=== PATIENT | female | born 1955 | race Caucasian/White ===

== ENCOUNTER 2016-10-16 15:37 | Observation (INO) | payer OTHER ==
[2016-10-16] MEDS ORDERED: Aspirin Low Dose CHEW TAB* 81 MG PO ONE (16:10)
--- NOTE | 2016-10-16 16:40 | RAD ---
INDICATION: Chest discomfort and arrhythmia COMPARISON: Similar chest x-ray dated December 24, 2015 TECHNIQUE: Single AP portable view of the chest was obtained. FINDINGS: Image quality is compromised due to the relative inferiority of a portable chest x-ray. The heart and mediastinum exhibit normal size and contour. The lungs are grossly clear. There is no evidence of a large pleural effusion. Visualized bones are normal for the patient's age. IMPRESSION: No radiographic evidence for acute cardiopulmonary abnormality on this portable chest x-ray.
[2016-10-16 16:47] LABS: Hematocrit 40 % (35-47); Hemoglobin 13.3 g/dl (12.0-16.0); Mean Corpuscular HGB Conc 34 g/dl (31-36); Mean Corpuscular Hemoglobin 29 pg (27-31); Mean Corpuscular Volume 86 fL (80-97); Mean Platelet Volume 9 um3 (7.4-10.4); Red Cell Distribution Width 14 % (10.5-15); White Blood Count 6.2 10^3/ul (3.5-10.8)
[2016-10-16 17:05] LABS: Albumin 4.2 g/dL (3.2-5.2); BUN/Creatinine Ratio 13.3 (8-20); Calcium 8.7 mg/dL (8.6-10.3); EGFR African American 89.9 (>60); EGFR Non-African American 69.9 (>60); Globulin 2.3 g/dL (2-4); Potassium 3.5 mmol/L (3.5-5.0); Total Bilirubin 0.5 mg/dL (0.2-1.0); Total Protein 6.5 g/dL (6.4-8.9)
[2016-10-16 19:36] LABS: TSH (Thyroid Stimulating Horm) 2.28 mcIU/mL (0.34-5.60)
[2016-10-16 19:43] LABS: Free T4 0.96 ng/dL (0.61-1.12)
[2016-10-16] MEDS ORDERED: MELOXICAM 10 MG PO PRN (23:38)
--- NOTE | 2016-10-17 03:26 | HP ---
HISTORY AND PHYSICAL: DATE OF ADMISSION: 10/16/16 PRIMARY CARE PHYSICIAN: [facility], HASMUKH Parry CHIEF COMPLAINT: Shortness of breath. HISTORY OF PRESENT ILLNESS: The patient is a 61-year-old woman who says [facility] and when she was evaluated by the provider there, they listened to her heart rate and pulse and became concerned and sent her over to the ER because of concerns about an irregular pulse. She has been short of breath lately for about the last month. It seems to happen when she goes to the bathroom in the middle of the night or goes to the mail box. She denies any increased shortness of breath when she is laying flat, but she has noticed about a 40-pound weight gain over the last year. She has not noticed any increased swelling in her legs. She did have a slightly elevated BNP in the ER. However, her regular heart beat was no more than PVCs on the EKG and she was in sinus rhythm. PAST MEDICAL HISTORY: Significant for hypothyroidism, diabetes mellitus, hyperlipidemia, arthritis. PAST SURGICAL HISTORY: Significant for total right knee, total right hip, total left knee, two C-sections, cholecystectomy, uvuloplasty, back surgery, thyroidectomy. CURRENT MEDICATIONS: 1. Synthroid 100 mcg a day. 2. Meloxicam 10 mg a day as needed. 3. It should be noted she was on Lopid and metformin, but she stopped those about a month ago because thought they were causing her diarrhea. FAMILY HISTORY: Significant for mother who at age 60 after a broken hip. Father in his 50s of cancer of unknown origin. SOCIAL HISTORY: No tobacco, no alcohol, or recreational drug use. 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 She has 3 children. She is not . Her friend, Ivanna Justice, is her healthcare proxy. REVIEW OF SYSTEMS: A 14-point review of systems was completed with the patient. All pertinent positives and negatives are in the history of present illness, otherwise it is negative. PHYSICAL EXAMINATION GENERAL: Pleasant woman, lying in bed, in no acute distress. VITAL SIGNS: Blood pressure 145/66, pulse oxygenation 96% on room air, respiratory rate 16 breaths per minute, heart rate 65 beats per minute, and temperature 99.6 degrees. HEENT: Normocephalic, atraumatic. Pupils equal, round, reactive to light. Moist mucous membranes. NECK: Supple. No JVD, bruits, palpable thyroid, or lymphadenopathy. LUNGS: Chest is clear to auscultation and percussion bilaterally. CARDIOVASCULAR: S1 and S2 appreciated. Regular rate and rhythm. ABDOMEN: Positive bowel sounds in all 4 quadrants. Soft, nontender, and nondistended. She is obese. EXTREMITIES: No cyanosis or clubbing, but she does have some bilateral pitting edema. NEUROLOGIC: Alert and oriented x3. Moves all extremities. SKIN: No rashes or abnormalities. LABORATORY DATA: EKG shows normal sinus rhythm at a rate of 66 beats per minute. Normal axis. No acute ST or T-wave changes. She has PVCs. Her chest x-ray was interpreted by Radiology as no radiographic evidence for acute cardiopulmonary abnormality on this portable chest x-ray. ASSESSMENT AND PLAN: 1. Shortness of breath. I think the patient is likely to be fine and it may be secondary to her deconditioning from her weight gain. However, she does have some edema and a slightly elevated BNP. We will cycle her troponins overnight and check a transthoracic echocardiogram in the morning, but I think she should be able to be discharged over night and I will admit her to the CDU unit. 2. Hypothyroidism. Continue Synthroid. 3. Diabetes mellitus. The patient should go back on her medications as an outpatient since she has not improved since discontinuing her metformin. 4. DVT prophylaxis, heparin subcu. 5. FEN. Consistent carb diet. 6. The patient is a full code. TIME SPENT: Over 75 minutes were spent on this H and P, more than 40 minutes of which was spent in direct vhhb-at-wdip contact with the patient in evaluation , physical examination, counseling, and coordination of care. CC: [facility], HASMUKH Parry* [id number]/CPS #: [id number] MTDD
[2016-10-17] MEDS ORDERED: Levothyroxine TAB* 100 MCG TAB PO SCH (06:00)
[2016-10-17] MEDS ORDERED: Heparin VIAL(*) 5000 UNITS/ML VIAL (FIVE THOUSAND) SUBCUT SCH (06:00)
[2016-10-17 11:37] VITALS: BP 112/89
--- NOTE | 2016-10-17 12:46 | ECHO ---
Patient: DANIAL [facility] Rec#: [id number] : 1955 Date: 10/17/2016 Age: 61y Height: 180.34 cm / 71.0 in Weight: 127.01 kg / 279.9 lbs Sex: F BSA: 2.43 Room#: 451 Admit Date#: 10/16/2016 Type: Inpatient Referring: Thompson Charlton MD Reading: Alice Camacho MD Supervisor Final: Rachna Weiss RD,RDMS Supervisor Final: Marisol Valencia Transthoracic Echocardiogram Indication: Dyspnea BP: 127/74 HR: 74 Rhythm: NSR with PVCs Findings History: DM, HLD, edema. Technical Comments: The study quality is fair. The study is technically limited due to patient body habitus. Completed at 1200. Left Ventricle: The left ventricular chamber size is normal. Global left ventricular wall motion and contractility are within normal limits. There is normal left ventricular systolic function. The estimated ejection fraction is 60-65%. There is no consistent Doppler evidence of clinically significant diastolic dysfunction. Left Atrium: The left atrial chamber size is normal. Right Ventricle: Moderator Band present. The right ventricular cavity size is normal. The right ventricular global systolic function is low normal.based on subcostal views, relative hypokinesis at the apex, base moves well. Right Atrium: The right atrium is moderately dilated. Aortic Valve: The aortic valve is trileaflet. There is no evidence of aortic valve thickening. There is no evidence of aortic regurgitation. There is no evidence of aortic stenosis. Mitral Valve: There is trace to mild mitral regurgitation. There is no evidence of mitral stenosis. Tricuspid Valve: The tricuspid valve leaflets are normal. There is trace to mild tricuspid regurgitation. No pulmonary hypertension is noted. There is no tricuspid stenosis. Pulmonic Valve: The pulmonic valve appears normal. There is mild pulmonic regurgitation. There is no pulmonic stenosis. Pericardium: There is no significant pericardial effusion. A pericardial fat pad is visualized. Aorta: There is mild dilatation of the ascending aorta. There is no dilatation of the aortic arch. There is no dilation of the aortic root. Pulmonary Artery: The main pulmonary artery is not well visualized. Venous: The inferior vena cava appears normal in size. There is a greater than 50% respiratory change in the inferior vena cava dimension. Conclusions The left ventricular chamber size is normal. Global left ventricular wall motion and contractility are within normal limits. The estimated ejection fraction is 60-65%. The right ventricular global systolic function is low normal. The right atrium is moderately dilated. There is trace to mild mitral regurgitation. There is trace to mild tricuspid regurgitation. No pulmonary hypertension is noted. There is mild dilatation of the ascending aorta: 3.7 cm. A pericardial fat pad is visualized. The patient was in sinus rhythm with frequent PVC's throughout the study. No prior studies to compare. Measurements Name Value Normal Range RVIDd (AP) 2D 2.7 cm (0.9 - 2.6) RVDdMajor (2D) 4.1 cm (2.2 - 4.4) RAd ISD 4CH 5.7 cm (3.4 - 4.9) RA (A4C)W 5.4 cm (2.9 - 4.6) IVSd (2D) 1 cm (0.6 - 1) LVPWd (2D) 0.9 cm (0.6 - 1) LVIDd (2D) 5.1 cm (3.6 - 5.4) LVIDs (2D) 3.4 cm - LV FS (2D) 33 % (25 - 45) Aortic Annulus 2.2 cm (1.4 - 2.6) Ao root diameter (2D) 3.3 cm (2.1 - 3.5) Ascending Ao 3.7 cm (2.1 - 3.4) Aortic arch 2.6 cm (1.8 - 3.4) LA dimension (AP) 2D 3.5 cm (2.3 - 3.8) LAd ISD 4CH 5.3 cm (2.9 - 5.3) LA ISD 4CH W 4.1 cm (2.5 - 4.5) Name Value Normal Range LA ESV SP 4CH (A/L) 48 ml - LA ESV SP 2CH (A/L) 82 ml - LA ESV BP (A/L) 63 ml - LA ESV BP (A/L) index 25.82 ml/m2 - LA ESV SP 4CH (MOD) 43 ml - LA ESV SP 2CH (MOD) 73 ml - Name Value Normal Range MV E-wave Vmax 0.9 m/sec - MV deceleration time 178 msec - MV A-wave Vmax 0.6 m/sec - MV E:A ratio 1.5 ratio - LV septal e' Vmax 0.1 m/sec - LV lateral e' Vmax 0.11 m/sec - LV E:e' septal ratio 9 ratio - LV E:e' lateral ratio 8.18 ratio - Name Value Normal Range AV Vmax 1.3 m/sec - AV VTI 27 cm - AV peak gradient 7.1 mmHg - AV mean gradient 3.57 mmHg - LVOT Vmax 1 m/sec - LVOT VTI 25 cm - LVOT peak gradient 4.28 mmHg - LVOT mean gradient 2.83 mmHg - MEMO Vmax 0.8 m/sec - Name Value Normal Range TR Vmax 2.2 m/sec - TR peak gradient 19 mmHg - RAP 3 mmHg - RVSP 22 mmHg - IVC diameter 1.7 cm - Name Value Normal Range PV Vmax 0.7 m/sec - PV peak gradient 2.17 mmHg -
--- NOTE | 2016-10-17 13:15 | DCNOTE ---
Patient seen this morning. Reports no SOB, chest pain. Reports diarrhea which has been ongoing for the past month which PCP is currently working up. Explained PVCs/trigeminy to the patient and echo results. On exam, occasional ectopic beat, abd soft, NT, mild distension, hyperactive BS , no LE edema D/C home. Should proceed with sleep study and outpatient GI work-up as is being done. Will write for zofran and trial of imodium.
--- NOTE | 2016-10-17 22:29 | ED ---
Kelton Perez Adam, scribed for Adan Garrison MD on 10/16/16 at 1616 . Palpitations / Dysrhythmia - HPI Summary HPI Summary: Pt is a 61 year old female presenting with an irregular heart beat. She was at a consultation appt to set up a sleep study when her heart rate was found to be irregular so she was sent to the ED. She set up the appt because for the past month she has been having nausea, diaphoresis, chills, cough, chest tightness, SOB with minimal exertion, and diarrhea. The diarrhea is loose and "mucusy." She denies fever, urinary sx, edema, and dizziness. She sleeps on 1 pillow. PMHx of hypothyroidism. - History of Current Complaint Chief Complaint: EDDysrhythmPalp Time Seen by Provider: 10/16/16 16:09 Hx Obtained From: Patient Onset/Duration: Lasting Hours, Still Present Timing: Constant Severity Initially: Moderate Severity Currently: Moderate Character: Irregular Aggravating: Nothing Alleviating: Nothing Associated Signs & Symptoms: Chest Pain, Shortness of Breath, Diaphoresis, Nausea - Allergy/Home Medications Allergies/Adverse Reactions: Allergies Allergy/AdvReac Type Severity Reaction Status Date / Time No Known Allergies Allergy Verified 10/16/16 21:09 PMH/Surg Hx/FS Hx/Imm Hx Endocrine/Hematology History: Reports: Hx Thyroid Disease Denies: Hx Diabetes Cardiovascular History: Denies: Hx Hypertension Respiratory History: Denies: Hx Asthma, Hx Chronic Obstructive Pulmonary Disease (COPD) GI History: Denies: Hx Ulcer - Surgical History Surgery Procedure, Year, and Place: RIGHT HIP SURGERY. LEFT KNEE Infectious Disease History: No Infectious Disease History: Denies: Hx Hepatitis, Hx Human Immunodeficiency Virus (HIV), Traveled Outside the [place] in Last 30 Days - Family History Known Family History: Positive: Other - Negative breast cancer - Social History Occupation: Retired Lives: With Family - Male friend Alcohol Use: Occasionally Alcohol Amount: every 3 months - 1 drink or 2 drinks Hx Substance Use: No Substance Use Type: Reports: None Hx Tobacco Use: No Smoking Status (MU): Never Smoked Tobacco Review of Systems Positive: Chills, Skin Diaphoresis. Negative: Fever Negative: Erythema Negative: Sore Throat Positive: Chest Pain Positive: Shortness Of Breath, Cough Positive: Diarrhea, Nausea. Negative: Abdominal Pain, Vomiting Negative: dysuria, hematuria Negative: Myalgia, Edema Negative: Rash Neurological: Other - Negative dizziness All Other Systems Reviewed And Are Negative: Yes Physical Exam - Summary Physical Exam Summary: Constitutional: Well-developed, Well-nourished, Alert. (-) Distressed Skin: Warm, Dry HENT: Normocephalic; Atraumatic Eyes: Conjunctiva normal Neck: Musculoskeletal ROM normal neck. (-) JVD, (-) Stridor, (-) Tracheal deviation Cardio: Perfusing HR is 44 BPM. Pulmonary/Chest wall: Effort normal. (-) Respiratory distress, (-) Wheezes, (-) Rales Abd: Soft, (-) Tenderness, (-) Distension, (-) Guarding, (-) Rebound Musculoskeletal: (-) Edema Lymph: (-) Cervical adenopathy Neuro: Alert, Oriented x3 Psych: Mood and affect Normal Triage Information Reviewed: Yes Vital Signs On Initial Exam: Initial Vitals Temp Pulse Resp BP Pulse Ox 99.6 F 40 20 152/71 98 10/16/16 15:44 10/16/16 15:44 10/16/16 15:44 10/16/16 15:44 10/16/16 15:44 Vital Signs Reviewed: Yes - Dupuyer Coma Scale Coma Scale Total: 15 Diagnostics - Vital Signs Vital Signs Temp Pulse Resp BP Pulse Ox 10/16/16 15:44 99.6 F 40 20 152/71 98 - Laboratory Result Diagrams: 10/16/16 16:27 10/16/16 16:27 Lab Statement: Any lab studies that have been ordered have been reviewed, and results considered in the medical decision making process. - Radiology CXR Radiology Interpretation Completed By: Radiologist - IMPRESSION: No radiographic evidence for acute cardiopulmonary abnormality on this portable chest x-ray. - EKG 15:57 Cardiac Rate: NL EKG Interpretation: Trigeminy EKG Comparison: Other - No prior EKG's available for comparison. - Additional Comments Diagnostic Additional Comments: Troponin I - 0.00 Course/Dx - Course Course Of Treatment: Perfusing HR is 44 BPM. No prior EKG's available for comparison. - Diagnoses Provider Diagnoses: Symptomatic bradycardia, SOB (shortness of breath) - Physician Notifications Discussed Care Of Patient With: Dr. Charlton at 21:40. He is aware of the patient. Discharge - Discharge Plan Condition: Stable Disposition: ADMITTED TO [facility] documentation as recorded by the Kelton tyson Adam accurately reflects the service I personally performed and the decisions made by me, Adan Garrison MD.
--- NOTE | 2016-10-18 16:28 | DS ---
CC: Dr. Yeni Faria DISCHARGE SUMMARY: DATE OF ADMISSION: 10/16/16 DATE OF DISCHARGE: 10/17/16 PRIMARY CARE PHYSICIAN: Dr. Yeni Faria. PRINCIPAL DISCHARGE DIAGNOSIS: PVCs. SECONDARY DIAGNOSES: Diarrhea, likely obstructive sleep apnea. DISCHARGE MEDICATION REGIMEN: 1. Meloxicam 10 mg by mouth daily as needed for pain. 2. Synthroid 100 mcg by mouth daily. 3. Zofran 4 mg by mouth every 6 hours as needed for nausea. 4. Loperamide 2 mg by mouth every 4 hours as needed for diarrhea. STUDIES DONE DURING HOSPITALIZATION: 1. Chest x-ray. Impression: No radiographic evidence for acute cardiopulmonary abnormality on [facility] portable chest x-ray. 2. Transthoracic echocardiogram. Conclusion: The left ventricular chamber size is normal. Global left ventricular wall motion and contractility within normal limits. 3. Estimated ejection fraction is 60% to 65%. The right ventricular global systolic function is lo w normal. The right atrium is moderately dilated. There is [id number] mitral regurgitation. Th ere is biesi-qu-fesp tricuspid regurgitation. No pulmonary hypertension is noted. Pericardial fat pad is visualized. There is mild dilatation of the ascending aorta. HISTORY OF PRESENT ILLNESS AND HOSPITAL SUMMARY: Please see the full history and physical by Dr. Reji Charlton for full details. Briefly, Ms. Guillory is a 61-year-old female who [facility] she was being [facility] and was noted to have an irregular heart rat e. The patient reported some intermittent shortness of breath over the past month or so. She has n ot noted any increased leg swelling. EKG in the hospital showed PVCs, more specifically trigeminy. The patient had an echocardiogram as above that was largely unremarkable. She did not seem to be s ymptomatic from her PVCs and I would not recommend any treatment at this time. On the day of discharge, the patient stated that she has been having diarrhea for a month or so. Sh e states she is in the process of being worked up by her PCP for this. She did have a C. diff test her in the hospital that was negative. I stated that she should follow up with her PCP regarding di arrhea. In the meantime, I prescribed some Imodium as well as some Zofran as she reports occasional nausea as well. I also recommended the patient to follow up with the Sleep Clinic to have her slee p study done. The patient will follow up with her PCP as an outpatient. TIME SPENT: Total time spent on this discharge, 35 minutes. This is a summary of the hospitalization. Please see the full medical record for further details. [id number]/CPS #: [id number]
== END 2016-10-17 13:53 | disposition home or self-care (01) ==
LOC: ED 15:37 → MEDTELE 10-17 00:01
PROVIDERS: ADMIT Internal Medicine; ATTEND Hospitalist
DX: I49.3 Ventricular premature depolarization (principal); R19.7 Diarrhea, unspecified; R06.02 Shortness of breath; E03.9 Hypothyroidism, unspecified; R00.8 Other abnormalities of heart beat; E11.9 Type 2 diabetes mellitus without complications; Z79.899 Other long term (current) drug therapy
CPT/HCPCS: 36415; 71010; 80053; 83605; 83880; 84439; 84443; 84484; 85025; 87045; 87046; 87493; 87899; 93005; 93306; 99283; A9270-GY; G0378; J1644

== ENCOUNTER 2017-04-28 16:53 | Emergency (ER) | payer OTHER ==
--- NOTE | 2017-04-28 17:07 | UC ---
Complaint Female HPI - HPI Summary HPI Summary: 62 YEAR OLD FEMALE PRESENTS WITH URINARY FREQUENCY, URGENCY, AND PAIN. - History Of Current Complaint Stated Complaint: UTI Time Seen by Provider: 04/28/17 17:06 - Allergies/Home Medications Allergies/Adverse Reactions: Allergies Allergy/AdvReac Type Severity Reaction Status Date / Time No Known Allergies Allergy Verified 04/28/17 17:16 PMH/Surg Hx/FS Hx/Imm Hx Previously Healthy: Yes - Surgical History Surgical History: Yes Surgery Procedure, Year, and Place: RIGHT HIP SURGERY. LEFT KNEE - Family History Known Family History: Positive: None, Other - Negative breast cancer - Social History Alcohol Use: Occasionally Alcohol Amount: every 3 months - 1 drink or 2 drinks Substance Use Type: None Smoking Status (MU): Never Smoked Tobacco - Immunization History Most Recent Influenza Vaccination: 2015 Most Recent Pneumonia Vaccination: 2014 Review of Systems Constitutional: Negative Skin: Negative Eyes: Negative ENT: Negative Respiratory: Negative Cardiovascular: Negative Gastrointestinal: Negative Genitourinary: Dysuria, Frequency, Urgency Motor: Negative Neurovascular: Negative Musculoskeletal: Negative Neurological: Negative Psychological: Negative All Other Systems Reviewed And Are Negative: Yes Physical Exam Triage Information Reviewed: Yes Vital Signs Reviewed: Yes Eye Exam: Normal ENT Exam: Normal Dental Exam: Normal Neck exam: Normal Neck: Positive: 1 Respiratory Exam: Normal Cardiovascular Exam: Normal Abdominal Exam: Normal Musculoskeletal Exam: Normal Neurological Exam: Normal Psychological Exam: Normal Skin Exam: Normal Complaint Female Dx - Differential Dx/Diagnosis Provider Diagnoses: UTI. DYSURIA. URINARY FREQUENCY Discharge - Discharge Plan Condition: Stable Disposition: HOME Prescriptions: Ciprofloxacin TAB* [Cipro 500 MG TAB*] 500 mg PO BID #14 tab Patient Education Materials: Urinary Tract Infection in Women (ED) Referrals: Yeni Faria MD [Primary Care Provider] -
[2017-04-28 17:16] VITALS: BP 132/87
[2017-04-28] MEDS ORDERED: Ciprofloxacin TAB* 500 MG PO ONE (18:00)
[2017-04-28] MEDS ORDERED: Ciprofloxacin TAB* 500 MG ONE (18:06)
--- NOTE | 2017-04-30 15:58 | ED ---
Progress - Progress Note Progress Note: STREP B. IF NOT BETTER WILL CALL IN NEW ABX (KEFLEX). Course/Dx - Diagnoses Provider Diagnoses: Dysuria
== END 2017-04-28 17:41 | disposition home or self-care (01) ==
LOC: UCEAST 16:53
DX: N39.0 Urinary tract infection, site not specified (principal); R35.0 Frequency of micturition; R30.0 Dysuria
CPT/HCPCS: 81003; 87077; 87086; 99212; A9270-GY; G0463